=== PATIENT | female | born 1985 | race Two or more races ===

== ENCOUNTER 2021-12-13 21:24 | Emergency (ER) | payer SELFPAY ==
[~2021-12-13] VITALS: Ht 154.9 cm; Wt 59.9 kg
[2021-12-13 21:24] VITALS: BP 126/83
[2021-12-13 22:30] LABS: Urine WBC None Seen /hpf (0 - 5)
[2021-12-13 22:54] LABS: Urine Bacteria NONE SEEN /hpf (None Seen); Urine Blood Negative /uL (Negative); Urine Specific Gravity 1.019 (1.001-1.035)
[2021-12-14] MEDS ORDERED: IBUPROFEN 800 MG TAB PO ONE (00:30)
[2021-12-14] MEDS ORDERED: IBUP800T26 PO (00:44)
== END 2021-12-14 00:55 | disposition home or self-care (01) ==
LOC: ER 21:24
DX: M54.42 Lumbago with sciatica, left side (principal)
CPT/HCPCS: 81001

== ENCOUNTER 2022-07-03 12:31 | Observation (INO) | payer MEDICAID ==
[~2022-07-03 12:31] MED LIST: IBUP-1455 PO
[2023-07-03] MEDS ORDERED: PREN-96 PO (14:01)
== END 2023-07-03 14:21 | disposition home or self-care (01) ==
LOC: UNDOADMOB 12:31 → LDRP 12:31 → UNDOADMOB 07-03 12:11 → LDRP 07-03 12:11
PROVIDERS: ADMIT Obstetrics & Gynecology; ATTEND Obstetrics & Gynecology
DX: O09.513 Supervision of elderly primigravida, third trimester (principal); O36.8330 Maternal care for abnormalities of the fetal heart rate or rhythm, third trimester, not applicable or unspecified; O62.9 Abnormality of forces of labor, unspecified; Z3A.33 33 weeks gestation of pregnancy
CPT/HCPCS: 59025; 76805; 76818; 81002; 94760; G0378

== ENCOUNTER 2023-07-29 03:37 | Inpatient (IN) | payer MEDICAID ==
[~2023-07-29] VITALS: Ht 157.5 cm; Wt 70.3 kg
[~2023-07-29 03:37] MED LIST changes: +PREN-96 PO
[2023-07-29] MEDS ORDERED: LACTATED RINGER'S 1,000 ML IV SCH (05:00)
[2023-07-29] MEDS ORDERED: PROMETHAZINE HCL 25 MG/ML 1ML IV PRN (05:00)
[2023-07-29] MEDS ORDERED: BUTORPHANOL TARTRATE 2 MG/1 ML VIAL IV PRN ×2 (05:00)
[2023-07-29] MEDS ORDERED: PENICILLIN G POT 5MIL/D5 50ML 50 ML IV ONE (05:00)
[2023-07-29] MEDS ORDERED: LIDOCAINE 2%HCL (LOCAL ANESTH.) INJ 20ML MDV IJ PRN (05:00)
[2023-07-29] MEDS ORDERED: METHYLERGONOVINE MALEATE 0.2 MG/ML AMP IM ONE ×2 (05:37→05:51)
[2023-07-29] MEDS ORDERED: miSOPROStol 100 mcg TAB ONE (05:37)
[2023-07-29] MEDS: WITCH HAZEL-GLYCERIN PAD TOP PRN (05:58)
[2023-07-29] MEDS: DERMOPLAST 60ML BOTTLE TOP PRN (05:58)
[2023-07-29] MEDS: PHISODERM TOP SOLN 240ML BTL TOP PRN (05:58)
[2023-07-29] MEDS: LACT. RINGERS/OXYTOCIN 20UNITS 500 ML IV ONE ×2 (06:16)
[2023-07-29 06:20] LABS: Basophils # (auto) 0 10 ^3/uL (0-0.2); Basophils % (auto) 0.2 % (0.0-2.0); Eosinophils # (auto) 0 10 ^3/uL (0-0.8); Eosinophils % (auto) 0.2 % (0.0-7.0); Lymphocytes # (auto) 2.1 10 ^3/uL (0.4-5.4); Lymphocytes % (auto) 19.2 % (10.0-50.0); Mean Corpuscular Hemoglobin 31.9 pg (28.0-32.0); Mean Corpuscular Hgb Conc. 34.1 g/dL (32.0-36.0); Mean Corpuscular Volume 93.5 fL (80.0-100.0); Monocytes # (auto) 0.9 10 ^3/uL (0-1.3); Monocytes % (auto) 8.5 % (0.0-12.0); Neutrophils # (auto) 7.9 10 ^3/uL (1.6-8.6); Neutrophils % (auto) 71.9 % (37.0-80.0); Red Blood Cells 4.38 10^6/uL (4.0-5.20); Red Cell Distribution Width 13.4 % (11.8-14.3); White Blood Cell 10.9 10^3/uL (4.4-10.8)
[2023-07-29 06:22] LABS: Alanine Aminotransferase 16 U/L (7-40); Albumin 3.5 g/dL (3.2-4.8); Alkaline Phosphatase 242 U/L (46-116); Anion Gap 11 (5-15); Aspartate Aminotransferase 21 U/L (13-40); BUN/Creatinine Ratio 17.5 (10.0-20.0); Bilirubin, Total 0.5 mg/dL (0.2-1.0); Blood Urea Nitrogen 10 mg/dL (9-23); Calcium 8.5 mg/dL (8.7-10.4); Carbon Dioxide 20 mmol/L (20-30); Chloride 105 mmol/L (98-107); Glucose 93 mg/dL (74-106); Potassium 3.4 mmol/L (3.5-5.1); Sodium 136 mmol/L (136-145); Total Protein 6.1 g/dL (5.7-8.2)
[2023-07-29 06:25] LABS: Urine Bacteria MOD /hpf (None Seen); Urine Blood Negative /uL (Negative); Urine Clarity HAZY (Clear); Urine Color Colorless (Yellow); Urine Mucus FEW (None Seen); Urine Protein, UAD Negative (Negative); Urine Specific Gravity 1.014 (1.001-1.035); Urine Urobilinogen Normal (Negative); Urine WBC 3 /hpf (0 - 5); Urine pH 6.5 (5.0-8.0)
[2023-07-29 06:30] LABS: INR 0.91 (0.9-1.15); Partial Thromboplastin Time 26.8 SEC (24.5-34.5); Prothrombin Time 9.6 sec (9.3-11.8)
[2023-07-29 06:35] LABS: Amphetamine Screen, Urine Neg (NEGATIVE); Barbiturate Scree,Urine Neg (NEGATIVE); Benzodiazephine Screen, Urine Neg (NEGATIVE); Cannabinoid Screen, Urine Neg (NEGATIVE); Cocaine Screen, Urine Neg (NEGATIVE); Opiate Scree,Urine Neg (NEGATIVE); Phencyclidine Screen, Urine Neg (NEGATIVE)
[2023-07-29] MEDS ORDERED: PENICILLIN G POTASSIUM 2,500,000 UNITS in D5W 5% 50 ML IV SCH (09:00)
[2023-07-29] MEDS ORDERED: ONDANSETRON ODT 4 MG TAB PO PRN (09:15)
[2023-07-29] MEDS ORDERED: ACETAMINOPHEN 325 MG TAB PO PRN (09:15)
[2023-07-29] MEDS: IBUPROFEN 600 MG TAB PO PRN (09:53)
[2023-07-29 18:30] VITALS: BP 134/60; PULSE 71; RESP 20; TEMP 98.5; O2SAT 98
[2023-07-29] MEDS: DOCUSATE SOD 100 MG CAP PO SCH (22:05)
[2023-07-29 23:00] VITALS: BP 97/65; PULSE 71; RESP 20; TEMP 98.8; O2SAT 98
[2023-07-31 08:06] LABS: RPR Non Reactive (Non Reactive)
[2023-08-01 19:06] LABS: Treponema pallidum Ab (FTA-Ab) Non Reactive (Non Reactive)
== END 2023-07-30 13:21 | disposition home or self-care (01) | DRG 560 ==
LOC: UNDOADMOB 03:37 → LDRP 03:37 → INTOOBSV 04:31 → LDRP 04:31 → OBSVTOIN 04:31 → LDRP 05:19
PROVIDERS: ADMIT Obstetrics & Gynecology; ATTEND Obstetrics & Gynecology
PROC: 10E0XZZ Delivery of Products of Conception, External Approach (ICD-10-PCS; principal; 2023-07-29)
PROC: 0HQ9XZZ Repair Perineum Skin, External Approach (ICD-10-PCS; 2023-07-29)
DX: O70.0 First degree perineal laceration during delivery (principal); Z37.0 Single live birth; Z3A.37 37 weeks gestation of pregnancy
CPT/HCPCS: 36415; 59025; 59409; 80053; 80307; 81001; 85025; 85610; 85730; 86592; 86850; 86900; 86901; 94760; 96365; 96366; 96372; G0378; J2590; J7060

== ENCOUNTER 2025-06-07 18:10 | Emergency (ER) | payer MEDICAID ==
[~2025-06-07] VITALS: Ht 160 cm; Wt 65.3 kg
--- NOTE | 2025-06-07 20:51 | ED.PDOC ---
Lorne. trauma (HPI) HPI Comments 39 y/o F, presents to the ED for CC of s/p crushing injury. Patient states, a dinning room chair to have accidently fallen and crush her left foot yesterday (06/07/25) at approximately 0730. Following trauma, patient has notable swelling to her left foot with a 1cm well healing laceration to her left pinky toe. Selena ent endorses being able to bear weight onto her left extremity. Patient denies numbness, tingling, or weakness. Chief Complaint: Laceration Time Seen by MD: 20:00 Reviewed notes: Nurses Notes, Medications, Allergies Allergies: Coded Allergies: NO KNOWN ALLERGIES (Unverified , 12/13/21) Home Meds Active Scripts Ibuprofen Micronized (Ibuprofen) 800 Mg Tab, 800 MG PO Q6HPRN PRN, #30 TAB 0 Refills Prov:RAÚL GARZA 12/14/21 Reported Medications Vit W/ Ferrous Fumara ( One Daily) Daily Tab, 1 TAB PO DAILY, #90 TAB 3 Refills 07/03/23 Information Source: Patient Mode of Arrival: Ambulatory Severity: Moderate Timing: Days Duration: Since onset Prehospital treatment: None Location: (L) Foot Location of laceration: Other (LEFT FOOT) Mechanism: Blunt trauma Associated signs and symtoms: None Past Medical History PAST MEDICAL HISTORY: Denies Surgical History: Denies all surgeries 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 Family History Family History: Reviewed,noncontributory to illness Social History Smoker: Non-Smoker Alcohol: Denies ETOH Use Drugs: Denies Drug Use Lives In: Home Constitutional: denies: chills, diaphoresis, fatigue, fever, malaise, sweats, weakness, others EENTM: denies: blurred vision, double vision, ear bleeding, ear discharge, ear drainage, ear pain, ear ringing, eye pain, eye redness, hearing loss, mouth pain, mouth swelling, nasal discharge, nose bleeding, nose congestion, nose pain, photophobia, tearing, throat pain, throat swelling, voice changes, others Respiratory: denies: cough, hemoptysis, orthopnea, SOB at rest, shortness of breath, SOB with excertion, stridor, wheezing, others Cardiovascular: denies: chest pain, dizzy spells, diaphoresis, Dyspnea on exertion, edema, irregular heart beat, left arm pain, lightheadedness, palpitations, PND, syncope, others Gastrointestinal: denies: abdomen distended, abdominal pain, blood streaked bowels, constipated, diarrhea, dysphagia, difficulty swallowing, hematemesis, melena, nausea, poor appetite, poor fluid intake, rectal bleeding, rectal pain, vomiting, others Genitourinary: denies: abnormal vagina bleeding, burning, dyspareunia, dysuria, flank pain, frequency, hematuria, incontinence, pain, , vagina discharge, urgency, others Neurological: denies: dizziness, fainting, headache, left sided numbness, left sided weakness, numbness, paresthesia, pre-existing deficit, right sided numbness, right sided weakness, seizure, speech problems, tingling, tremors, wea kness, others Musculoskeletal: denies: back pain, gout, joint pain, joint swelling, muscle pain, muscle stiffness, neck pain, others Integumetry: reports: laceration (1CM TO LEFT PINK TOE); denies: bruises, change in color, change in hair/nails, dryness, lesions, lumps, rash, wounds, others Allergic/Immunocompromised: denies: Difficulty Healing, Frequent Infections, Hives, Itching, others Hematologic/Lymphatic: denies: anemia, blood clots, easy bleeding, easy bruising, swollen glands, others Endocrine: denies: excessive hunger, excessive sweating, excessive thirst, excessive urination, flushing, intolerance to cold, intolerance to heat, unexplained weight gain, unexplained weight loss, others Psychiatric: denies: anxiety, bipolar disorder, depression, hopeless, panic disorder, schizophrenia, sleepless, suicidal, others All Other Systems: Reviewed and Negative Physical Exam General Appearance: No Apparent Distress, Normal HEENT: Normal ENT Inspection, Pharynx Normal Neck: Full Range of Motion, Non-Tender, Normal, Normal Inspection Respiratory: Chest Non-Tender, Lungs Clear, No Accessory Muscle Use, No Respiratory Distress, Normal Breath Sounds Cardiovascular: No Edema, No Murmur, No Gallop, Normal Peripheral Pulses, Regu lar Rate/Rhythm Breast Exam: Deferred Gastrointestinal: No Organomegaly, Non Tender, No Pulsatile Mass, Normal Bowel Sounds, Soft Genitalia: Deferred Pelvic: Deferred Rectal: Deferred Extremities: No calf tenderness, Normal capillary refill, Normal inspection, Normal range of motion, Non-tender, No pedal edema Musculoskeletal : Location: Left Extremity Location: Foot Apperance: Swelling Neurologic: Alert, ink grinder II-XII nml as Tested, No Motor Deficits, Normal Affect, Normal Mood, No Sensory Deficits Cerebellar Function: Normal Reflexes: Normal Skin: Dry, Lacerations (1CM LAC TO LEFT PINKY TOE), Normal Color, Warm Lymphatic: No Adenopathy Was a procedure done? Was a procedure done?: No Differential Diagnosis Multiple Trauma: Fractures, Spine Injury X-Ray, Labs, Meds, VS Vital Signs Date Time Temp Pulse Resp B/P (MAP) Pulse Ox O2 Delivery O2 Flow Rate FiO2 06/07/25 22:05 98.7 66 17 118/67 (84) 99 98.7 06/07/25 22:05 66 17 99 Room Air 06/07/25 18:11 98.7 70 16 135/96 98 98.7 X-Ray, Labs, Meds, VS Comment Andrea tape applied to left foot 4th and 5th toe. Advised to clean foot daily. Time of 1ST Reevaluation: 20:30 Reevaluation 1ST: Unchanged Patient Education/Counseling: Diagnosis, Treatment, Need For Follow Up (Follow up with PCP next available point. Return emergency department if symptoms worsen.) Family Education/Counseling: No Family Present Departure 1 Departure Time of Disposition: 22:23 Impression: Primary Impression: Laceration of left foot excluding toes Qualified Codes: S91.312A - Laceration without foreign body, left foot, initial encounter Additional Impression: Fracture, toe Qualified Codes: S92.912A - Unspecified fracture of left toe(s), initial e ncounter for closed fracture Disposition: HOME / SELF CARE / HOMELESS Condition: Stable Discharged With: Self Critical Care Note Critical Care Time?: No Stability Stability form required: No Heart Score Heart Score: Heart Score Response (Comments) Value History N/A 0 EKG N/A 0 Age N/A 0 Risk Factors N/A 0 Troponin N/A 0 Total 0 I personally scribed for JENNIFER GARG MD ([email or web address]) on 06/07/25 at 20:51. Electronically submitted by Pat Borden ([email or web address]). I personally scribed for JENNIFER GARG MD ([email or web address]) on 06/07/25 at 21:03. Electronically submitted by Pat Borden ([email or web address]). JENNIFER GARG MD Jun 07, 2025 20:51 ROBBIE NORTON Jun 07, 2025 22:24
--- NOTE | 2025-06-07 21:33 | DVH ---
EXAM: XY L 5TH TOE XRAY REASON FOR EXAM: trauma TECHNIQUE: AP, lateral, and oblique views of the left 5th toe are submitted for review. COMPARISON: None FINDINGS: The bones demonstrate grossly normal mineralization. There is acute, nondisplaced fracture through the proximal diaphysis of the 5th proximal phalanx. There is moderate soft tissue swelling about the base of the 5th toe. IMPRESSION: Acute, nondisplaced fracture through the proximal diaphysis of the 5th proximal phalanx with associated soft tissue swelling.
[2025-06-07 22:05] VITALS: BP 118/67; PULSE 66; RESP 17; TEMP 98.7; O2SAT 99
== END 2025-06-07 22:34 | disposition home or self-care (01) ==
LOC: ER 18:10
DX: S92.912A Unspecified fracture of left toe(s), initial encounter for closed fracture (principal); S91.312A Laceration without foreign body, left foot, initial encounter; W23.0XXA Caught, crushed, jammed, or pinched between moving objects, initial encounter; Y93.89 Activity, other specified; Y92.89 Other specified places as the place of occurrence of the external cause; Y99.8 Other external cause status
CPT/HCPCS: 73660